=== PATIENT | male | born 1965 | race Caucasian/White ===

== ENCOUNTER 2018-10-08 19:26 | Inpatient (IN) | payer BC, OTHER ==
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
[2018-10-08] MEDS ORDERED: SODIUM CHLORIDE 0.9% 500 ML INFUS.BAG IV ONE (19:55)
[2018-10-08 21:01] LABS: ALBUMIN 4.3 g/dl (3.4-5.0); ALK PHOS 68 U/L (45-117); ANION GAP 8 MMOL/L (8-16); BILIRUBIN,TOTAL 0.5 mg/dl (0.2-1); BLOOD UREA NITROGEN 22 mg/dl (7-18); CALCIUM 8.4 mg/dl (8.5-10); CHLORIDE 102 mmol/L (98-107); CO2 21 mmol/L (21-32); CREATININE 1.2 mg/dl (0.55-1.3); GLUCOSE,RANDOM 97 mg/dl (74-106); POTASSIUM 3.9 mmol/L (3.5-5.1); SGOT/AST 38 U/L (15-37); SGPT/ALT 55 U/L (13-61); SODIUM 131 mmol/L (136-145)
[2018-10-08 21:24] LABS: HEMATOCRIT 41.7 % (35.4-49); HEMOGLOBIN 12.6 GM/dl (11.7-16.9); MCHC 30.3 g/dl (32.0-35.9); MEAN CELL VOLUME 65.7 fl (80-96); MEAN PLT VOLUME 8.7 fl (7.5-11.1); PLATELET COUNT 195 K/MM3 (134-434); RBC 6.34 M/mm3 (4.00-5.60); RDW 18.9 % (11.9-15.9); WHITE BLOOD COUNT 7.2 K/mm3 (4.0-10.8)
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
[2018-10-08 21:27] LABS: MCH 19.9 pg (25.7-33.7)
[2018-10-08 21:28] LABS: ADD RBC MORPHOLOGY YES
[2018-10-08 21:52] LABS: ANISOCYTOSIS 2+; TARGET CELLS 1+
[2018-10-09] MEDS ORDERED: ACETAMINOPHEN 325 MG TABLET (FP) PO PRN (00:55)
[2018-10-09 05:11] VITALS: BMI 32.1
[2018-10-09 08:01] LABS: HEMATOCRIT 41.5 % (35.4-49); HEMOGLOBIN 12.6 GM/dl (11.7-16.9); MCH 20.1 pg (25.7-33.7); MCHC 30.4 g/dl (32.0-35.9); MEAN CELL VOLUME 66.3 fl (80-96); MEAN PLT VOLUME 8.9 fl (7.5-11.1); PLATELET COUNT 176 K/MM3 (134-434); RBC 6.26 M/mm3 (4.00-5.60); RDW 19.2 % (11.9-15.9); WHITE BLOOD COUNT 6.9 K/mm3 (4.0-10.8)
[2018-10-09 08:03] LABS: ANION GAP 7 MMOL/L (8-16); BLOOD UREA NITROGEN 17 mg/dl (7-18); CALCIUM 8.1 mg/dl (8.5-10); CHLORIDE 102 mmol/L (98-107); CO2 24 mmol/L (21-32); CREATININE 1.1 mg/dl (0.55-1.3); GLUCOSE,RANDOM 83 mg/dl (74-106); POTASSIUM 4.2 mmol/L (3.5-5.1); SODIUM 133 mmol/L (136-145)
[2018-10-09] MEDS ORDERED: SODIUM CHLORIDE 1,000 ML IV STA (09:13)
[2018-10-09] MEDS ORDERED: SODIUM CHLORIDE 1,000 ML IV SCH (09:15)
--- NOTE | 2018-10-09 09:49 | PN ---
Physical Exam: SUBJECTIVE: Patient seen and examined at bedside. Two episodes of sweats overnight. Headache is improved. OBJECTIVE: Vital Signs Period Temp Pulse Resp BP Sys/Laguerre Pulse Ox Last 24 Hr 98.4 F-101.6 F 73-104 16-18 118-122/65-84 97-98 GENERAL: The patient is awake, alert, and fully oriented, in no acute distress. HEAD: Normal with no signs of trauma. LUNGS: CTA HEART: Regular rate and rhythm, S1, S2 ABDOMEN: Soft, nontender, nondistended EXTREMITIES: 2+ pulses, warm, well-perfused, no edema. NEUROLOGICAL: Cranial nerves II through XII grossly intact. Normal speech, gait not observed. SKIN: maculopapular rash on chest, back, arms, legs Laboratory Results - last 24 hr 10/08/18 10/08/18 10/08/18 20:00 20:22 20:22 WBC 7.2 RBC 6.34 H Hgb 12.6 Hct 41.7 MCV 65.7 L MCH 19.9 L MCHC 30.3 L RDW 18.9 H Plt Count 195 MPV 8.7 Absolute Neuts (auto) 5.4 Neutrophils % No Result Required. Lymphocytes % No Result Required. Hypochromia 3+ Anisocytosis 2+ Microcytosis 2+ Target Cells 1+ Sodium 131 L Potassium 3.9 Chloride 102 Carbon Dioxide 21 Anion Gap 8 BUN 22 H Creatinine 1.2 Creat Clearance w eGFR 62.86 Random Glucose 97 Calcium 8.4 L Total Bilirubin 0.5 AST 38 H ALT 55 Alkaline Phosphatase 68 Total Protein 7.0 Albumin 4.3 Influenza A (Rapid) Negative Influenza B (Rapid) Negative 10/09/18 10/09/18 07:06 07:06 WBC 6.9 RBC 6.26 H Hgb 12.6 Hct 41.5 MCV 66.3 L MCH 20.1 L MCHC 30.4 L RDW 19.2 H Plt Count 176 MPV 8.9 Absolute Neuts (auto) Neutrophils % Lymphocytes % Hypochromia Anisocytosis Microcytosis Target Cells Sodium 133 L Potassium 4.2 Chloride 102 Carbon Dioxide 24 Anion Gap 7 L BUN 17 Creatinine 1.1 Creat Clearance w eGFR 69.50 Random Glucose 83 Calcium 8.1 L Total Bilirubin AST ALT Alkaline Phosphatase Total Protein Albumin Influenza A (Rapid) Influenza B (Rapid) Active Medications Generic Name Dose Route Start Last Admin Trade Name Freq PRN Reason Stop Dose Admin Acetaminophen 650 mg 10/09/18 00:55 10/09/18 08:29 Tylenol - PO 650 mg Q6H PRN Administration HEADACHE Sodium Chloride 1,000 mls @ 1,000 mls/hr 10/09/18 09:13 Normal Saline - IV 10/09/18 10:12 ASDIR STA Sodium Chloride 1,000 mls @ 100 mls/hr 10/09/18 09:15 Normal Saline - IV ASDIR ELY ASSESSMENT/PLAN 53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 Fever Headache Rash --seen and evaluated by Dr. Paredes --concern for possible measles, state/county have been notified; our infection control is monitoring --bloods, urine, and swabs were collected this morning and picked [facility]; after the pickup, the [employer] and services orders were cancelled in the system because our lab will not be processing --hospitalist and Dr. Paredes will track lab results with the [facility] --transfer to for negative pressure room Labs to be done by County: * urine for measles culture * respiratory virus PCR panel * rubeola IgG, IgM Labs to be done here: * parvovirus IgG, IgM * Group A strep * Monoscreen * Fred Vann profile * RPR * HIV Visit type - Emergency Visit Emergency Visit: Yes ED Registration Date: 10/09/18 Care time: The patient presented to the Emergency Department on the above date and was hospitalized for further evaluation of their emergent condition. - New Patient This patient is new to me today: Yes Date on this admission: 10/09/18 - Critical Care Critical Care patient: No
--- NOTE | 2018-10-09 10:17 | PN ---
Progress Note (short form) - Note Progress Note: ID consult dictated imp/reccd 53 yo man admitted with high grade fever, SANCHEZ and rash developed fever and SANCHEZ 3 days ago, yesterday noted rash not sure where it began does not know vaccination history no cough no conjunctivitis no arthralgia no travel went to [facility] to [employer] and sally went to [facility] 2 weeks ago for college tour lives [place] no HIV risk factors no sore throat no antibiotics no dental work strep screen and influenza screen negative at urgicenter and in our ED cxray normal fever/rash isolate-airborne hiv unlikely but will test rpr unlikley but will test monospot strep screen parvovirus serology ?atypical measles- [facility] exposure? will d/w QIANA send serology d/w hospitalist
[2018-10-09 12:16] LABS: ANISOCYTOSIS 2+; OVALOCYTE 2+; TARGET CELLS 1+; TEAR DROP CELLS FEW
[2018-10-09 12:18] LABS: PLATELET ESTIMATE ADEQUATE
[2018-10-09] MEDS: SODIUM CHLORIDE 1,000 ML IV SCH (13:30)
[2018-10-09] MEDS: ACETAMINOPHEN 325 MG TABLET (FP) PO PRN ×2 (17:53→23:45)
--- NOTE | 2018-10-09 18:03 | CONSULT ---
Consult - text type - Consultation Consultation Note: NEUROLOGY CONSULTATION is greatly appreciated. Events reviewed and discussed with Ronnie Santacruz at [facility] this AM. Pt. examined at [facility] this AM prior to transfer. 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 He notes episodic headaches 1-2/month x many years. These can be present in the morning. Holocranial pressing headaches which are "nothing like his 's migraines" due to the general absence of nausea and photophobia. Pt is now admitted wfter thre days of fevers (up to 103), general malaise, and scattered, punctate rash over his chest, arms and legs, associated with a more severe, holocranial, pressing headache with photophobia "more like a migraine." No neck pain or stiffness. Headache has improved with decrease in temperature and is now "almost gone." AGATHA: Neck supple. Neg Kernigs Scattered punctate rash especially over bot distal legs NEURO: MS/Speech: Normal CN II-XII: Normal Motor: No drift or tremor. Normal strength, tone, bulk and reflexes. Toes downgoing Coord: No FTN Dystaxia Sensory: Normal Gait: Normal IMP: Normal neurological exam Febrile exacerbation of underlying migraines vs. a mild, viral meningitis. SUGGEST: CT of head (C-) Observe for continued resolution of headache Await viral studies Thank you very much, See Smith MD
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
[2018-10-10] MEDS: ACETAMINOPHEN 325 MG TABLET (FP) PO PRN ×3 (05:44→17:34)
[2018-10-10 07:17] LABS: BASO % 0.6 % (0-2.0); EOS % 0.8 % (0-4.5); HEMATOCRIT 37.1 % (35.4-49); HEMOGLOBIN 12.1 GM/dL (11.7-16.9); LYMPH % 19.4 % (8-40); MCH 20.9 pg (25.7-33.7); MCHC 32.8 g/dl (32.0-35.9); MEAN CELL VOLUME 63.8 fl (80-96); MEAN PLT VOLUME 9.3 fl (7.5-11.1); MONO % 14.3 % (3.8-10.2); NEUT % 64.9 % (42.8-82.8); PLATELET COUNT 185 K/MM3 (134-434); RBC 5.81 M/mm3 (4.00-5.60); RDW 20.5 % (11.9-15.9); WHITE BLOOD COUNT 6.8 K/mm3 (4.0-10.0)
[2018-10-10 07:51] LABS: ALBUMIN 3.6 g/dl (3.4-5.0); ALK PHOS 66 U/L (45-117); ANION GAP 7 MMOL/L (8-16); BILIRUBIN,TOTAL 0.4 mg/dL (0.2-1); BLOOD UREA NITROGEN 12 mg/dL (7-18); CALCIUM 7.8 mg/dL (8.5-10.1); CHLORIDE 106 mmol/L (98-107); CO2 26 mmol/L (21-32); CREATININE 1.1 mg/dL (0.55-1.3); GLUCOSE,RANDOM 84 mg/dL (74-106); POTASSIUM 4.4 mmol/L (3.5-5.1); SGOT/AST 33 U/L (15-37); SGPT/ALT 64 U/L (13-61); SODIUM 139 mmol/L (136-145); TOT PROT 6.5 g/dl (6.4-8.2)
[2018-10-10 10:03] LABS: RPR NONREACTIVE (NONREACTIVE)
--- NOTE | 2018-10-10 10:07 | PN ---
Progress Note (short form) - Note Progress Note: fever with headache last night now improved rash is itchy today no hiking no camping dog that is old and stays inside no tick bites history of varicella in his 30s Vital Signs Period Temp Pulse Resp BP Sys/Laguerre Pulse Ox Last 24 Hr 98.5 F-102 F 74-96 16-20 113-142/45-84 95-98 no oral lesions neck supple cor-rrr lungs clear abd soft,nt ext no edema maculopapular rash is unchanged CBC, BMP 10/10/18 06:35 10/10/18 06:35 Microbiology 10/08/18 20:25 Blood - Peripheral Venous Blood Culture - Preliminary NO GROWTH OBTAINED AFTER 24 HOURS, INCUBATION TO CONTINUE FOR 4 DAYS. 10/08/18 20:25 Blood - Peripheral Venous Blood Culture - Preliminary NO GROWTH OBTAINED AFTER 24 HOURS, INCUBATION TO CONTINUE FOR 4 DAYS. rubella IGG positive cxray normal a/p fever/rash isolate-airborne hiv unlikely but will test rpr unlikley but will test monospot, ebv serology strep screen negative parvovirus serology ?atypical measles- [facility] exposure? IGg is positive will still need to isolate until pcr is back d/w patient d/w hospitalist
[2018-10-10] MEDS: SODIUM CHLORIDE 1,000 ML IV SCH ×2 (11:23→13:30)
[2018-10-10 13:08] LABS: MONOSCREEN NEGATIVE (NEGATIVE)
--- NOTE | 2018-10-10 15:16 | PN ---
Physical Exam: SUBJECTIVE: Patient seen and examined. Headache is better. Had fever 101.2 early this morning. His only complaint is itching from the diffuse rash. OBJECTIVE: Vital Signs Period Temp Pulse Resp BP Sys/Laguerre Pulse Ox Last 24 Hr 98 F-102 F 80-96 18-20 113-142/45-84 95-96 GENERAL: The patient is awake, alert, and fully oriented, in no acute distress. LUNGS: Breath sounds equal, clear to auscultation bilaterally, no wheezes, no crackles, no accessory muscle use. HEART: Regular rate and rhythm, S1, S2 without murmur, rub or gallop. ABDOMEN: Obese, soft, nontender, nondistended, normoactive bowel sounds, no guarding, no rebound, no hepatosplenomegaly, no masses. EXTREMITIES: 2+ pulses, warm, well-perfused, no edema. SKIN: Erythematous papular lesions over chest, abdomen, back, arms and legs Laboratory Results - last 24 hr 10/08/18 10/09/18 10/09/18 20:30 15:15 18:02 WBC RBC Hgb Hct MCV MCH MCHC RDW Plt Count MPV Absolute Neuts (auto) Neutrophils % Lymphocytes % Monocytes % Eosinophils % Basophils % Nucleated RBC % ESR Sodium Potassium Chloride Carbon Dioxide Anion Gap BUN Creatinine Creat Clearance w eGFR Random Glucose Calcium Total Bilirubin AST ALT Alkaline Phosphatase C-Reactive Protein Total Protein Albumin RPR Titer Nonreactive Monoscreen Negative Rubeola (Measles) IgG >300.0 Group A Strep Rapid Negative 10/10/18 10/10/18 10/10/18 06:35 06:35 06:35 WBC 6.8 RBC 5.81 H Hgb 12.1 Hct 37.1 MCV 63.8 L MCH 20.9 L MCHC 32.8 RDW 20.5 H Plt Count 185 MPV 9.3 Absolute Neuts (auto) 4.4 Neutrophils % 64.9 Lymphocytes % 19.4 Monocytes % 14.3 H Eosinophils % 0.8 Basophils % 0.6 Nucleated RBC % 0 ESR Sodium 139 Potassium 4.4 Chloride 106 Carbon Dioxide 26 Anion Gap 7 L BUN 12 Creatinine 1.1 Creat Clearance w eGFR 69.50 Random Glucose 84 Calcium 7.8 L Total Bilirubin 0.4 AST 33 ALT 64 H Alkaline Phosphatase 66 C-Reactive Protein 4.3 H Total Protein 6.5 Albumin 3.6 RPR Titer Monoscreen Rubeola (Measles) IgG Group A Strep Rapid 10/10/18 06:35 WBC RBC Hgb Hct MCV MCH MCHC RDW Plt Count MPV Absolute Neuts (auto) Neutrophils % Lymphocytes % Monocytes % Eosinophils % Basophils % Nucleated RBC % ESR 11 Sodium Potassium Chloride Carbon Dioxide Anion Gap BUN Creatinine Creat Clearance w eGFR Random Glucose Calcium Total Bilirubin AST ALT Alkaline Phosphatase C-Reactive Protein Total Protein Albumin RPR Titer Monoscreen Rubeola (Measles) IgG Group A Strep Rapid Active Medications Generic Name Dose Route Start Last Admin Trade Name Freq PRN Reason Stop Dose Admin Acetaminophen 650 mg 10/09/18 13:22 10/10/18 11:20 Tylenol - PO 650 mg Q6H PRN Administration HEADACHE Sodium Chloride 1,000 mls @ 100 mls/hr 10/09/18 13:22 10/10/18 11:23 Normal Saline - IV 100 mls/hr ASDIR ELY Administration ASSESSMENT/PLAN: This is a 53 year old man with no significant medical history who presented to the ED with fever, headache, and rash x 3 days. 1. Fever with rash and headache - Doubt meningitis, measles - Now afebrile - WBC, hgb, platelets all normal - Had mild elevation of AST (38) yesterday, normal today - Mild elevation of ALT (64) today, normal yesterday - C-RP 4.3, ESR 11 - Influenza A/B negative - Rubeola IgG positive, IgM pending - RPR, [place], rapid Strep negative - EBV, HIV, parvovirus serologies pending - Blood cultures negative after 24 hours - Throat culture pending - Continue airborne isolation until Rubeola PCR results available Visit type - Emergency Visit Emergency Visit: Yes ED Registration Date: 10/09/18 Care time: The patient presented to the Emergency Department on the above date and was hospitalized for further evaluation of their emergent condition. - New Patient This patient is new to me today: Yes Date on this admission: 10/10/18 - Critical Care Critical Care patient: No - Discharge Referral Referred to [facility] Med P.C.: No
[2018-10-10] MEDS ORDERED: ACETAMINOPHEN 325 MG TABLET (FP) PO ONE (20:16)
[2018-10-11] MEDS ORDERED: IBUPROFEN 600 MG TABLET (FP) PO ONE (00:45)
[2018-10-11 06:58] LABS: BASO % 0.8 % (0-2.0); EOS % 0.6 % (0-4.5); HEMATOCRIT 35.6 % (35.4-49); HEMOGLOBIN 11.8 GM/dL (11.7-16.9); MCHC 33.3 g/dl (32.0-35.9); MEAN CELL VOLUME 63.2 fl (80-96); MEAN PLT VOLUME 9.4 fl (7.5-11.1); MONO % 11.7 % (3.8-10.2); NEUT % 61.9 % (42.8-82.8); PLATELET COUNT 180 K/MM3 (134-434); RBC 5.63 M/mm3 (4.00-5.60); RDW 19.9 % (11.9-15.9); WHITE BLOOD COUNT 5.2 K/mm3 (4.0-10.0)
[2018-10-11 07:16] LABS: ALBUMIN 3.3 g/dl (3.4-5.0); ALK PHOS 56 U/L (45-117); ANION GAP 7 MMOL/L (8-16); BILIRUBIN,DIRECT 0.1 mg/dL (0.0-0.2); BILIRUBIN,TOTAL 0.4 mg/dL (0.2-1); BLOOD UREA NITROGEN 11 mg/dL (7-18); CALCIUM 7.8 mg/dL (8.5-10.1); CHLORIDE 105 mmol/L (98-107); CO2 25 mmol/L (21-32); GLUCOSE,RANDOM 88 mg/dL (74-106); POTASSIUM 4.3 mmol/L (3.5-5.1); SGOT/AST 23 U/L (15-37); SGPT/ALT 53 U/L (13-61); SODIUM 137 mmol/L (136-145)
[2018-10-11] MEDS: IBUPROFEN 400 MG TABLET (FP) PO PRN (08:54)
[2018-10-11] MEDS: SODIUM CHLORIDE 1,000 ML IV SCH (12:00)
--- NOTE | 2018-10-11 12:42 | PN ---
Progress Note (short form) - Note Progress Note: fever with headache again alert today he has swelling of his right knee dog that is old and stays inside no tick bites no hunting no rodents history of varicella in his 30s one episode of diarrhea yesterday Vital Signs Period Temp Pulse Resp BP Sys/Laguerre Pulse Ox Last 24 Hr 98.8 F-102.3 F 71-88 18-20 112-142/68-87 96-99 rash has increased multiple flat muculopapular lesions on legs and arms increased rash on abdomen and back no vesicular lesions no bullous lesions no eschars he has an old healed cut on his leg cor-rrr lungs clear abd soft,nt ext no edema CBC, BMP 10/11/18 05:30 10/11/18 05:30 Laboratory Tests 10/09/18 10/09/18 10/09/18 15:15 15:15 18:02 ESR AST ALT Alkaline Phosphatase C-Reactive Protein RPR Titer Nonreactive Monoscreen Negative HIV Genotype Non reactive Group A Strep Rapid Negative 10/10/18 10/10/18 10/11/18 06:35 06:35 05:30 ESR 11 AST 23 ALT 53 Alkaline Phosphatase 56 C-Reactive Protein 4.3 H RPR Titer Monoscreen HIV Genotype Group A Strep Rapid rubella IGG positive, IGM negative (verbal from [facility]) cxray normal Microbiology 10/09/18 19:58 Throat Throat Culture - Final NO BETA HEMOLYTIC STREPTOCOCCI ISOLATED 10/08/18 20:25 Blood - Peripheral Venous Blood Culture - Preliminary NO GROWTH OBTAINED AFTER 48 HOURS, INCUBATION TO CONTINUE FOR 3 DAYS. 10/08/18 20:25 Blood - Peripheral Venous Blood Culture - Preliminary NO GROWTH OBTAINED AFTER 48 HOURS, INCUBATION TO CONTINUE FOR 3 DAYS. a/p fever/rash isolate-airborne ?tick illness- unlikely but will cover with doxycycline send lyme, ehrlichia, RMSF serology repeat blood cultures add mycoplasma serology start doxycycline d/w dermatology Dr Jiang she will be in to see the patient later today neurology re-evaluation for possible LP d/w by phone d/w hospitalist
[2018-10-11] MEDS: DOXYCYCLINE INJECTION 100 MG in DEXTROSE 5%-WATER - 100 ML IVPB SCH ×2 (13:53→21:48)
[2018-10-11] MEDS: IBUPROFEN 600 MG TABLET (FP) PO PRN ×2 (14:04→19:00)
--- NOTE | 2018-10-11 16:28 | PN ---
Physical Exam: SUBJECTIVE: Patient seen and examined. He complains of itching, right knee pain , and intermittent headaches when he has fevers. OBJECTIVE: Vital Signs Period Temp Pulse Resp BP Sys/Laguerre Pulse Ox Last 24 Hr 98.8 F-102.3 F 71-88 18-20 112-142/68-87 99-99 GENERAL: The patient is awake, alert, and fully oriented, in no acute distress. LUNGS: Breath sounds equal, clear to auscultation bilaterally, no wheezes, no crackles, no accessory muscle use. HEART: Regular rate and rhythm, S1, S2 without murmur, rub or gallop. ABDOMEN: Obese, soft, nontender, nondistended, normoactive bowel sounds, no guarding, no rebound, no hepatosplenomegaly, no masses. EXTREMITIES: 2+ pulses, warm, well-perfused, no edema. SKIN: Increased erythematous papular lesions over chest, abdomen, back, arms and legs. No lesions on face, scalp, palms, soles, or in mouth. Laboratory Results - last 24 hr 10/09/18 10/11/18 10/11/18 15:15 05:30 05:30 WBC 5.2 RBC 5.63 H Hgb 11.8 Hct 35.6 MCV 63.2 L MCH 21.0 L MCHC 33.3 RDW 19.9 H Plt Count 180 MPV 9.4 Absolute Neuts (auto) 3.2 Neutrophils % 61.9 Lymphocytes % 25.0 D Monocytes % 11.7 H Eosinophils % 0.6 Basophils % 0.8 Nucleated RBC % 0 Sodium 137 Potassium 4.3 Chloride 105 Carbon Dioxide 25 Anion Gap 7 L BUN 11 Creatinine 1.0 Creat Clearance w eGFR 77.58 Random Glucose 88 Calcium 7.8 L Total Bilirubin 0.4 Direct Bilirubin 0.1 AST 23 ALT 53 Alkaline Phosphatase 56 Total Protein 6.0 L Albumin 3.3 L HIV Genotype Non reactive Active Medications Generic Name Dose Route Start Last Admin Trade Name Freq PRN Reason Stop Dose Admin Acetaminophen 650 mg 10/09/18 13:22 10/10/18 17:34 Tylenol - PO 650 mg Q6H PRN Administration HEADACHE Sodium Chloride 1,000 mls @ 100 mls/hr 10/09/18 13:22 10/11/18 12:00 Normal Saline - IV 100 mls/hr ASDIR ELY Administration Doxycycline Hyclate 100 mg/ 100 mls @ 100 mls/hr 10/11/18 12:45 10/11/18 13: 53 Dextrose IVPB 100 mls/hr BID ELY Administration Ibuprofen 400 mg 10/11/18 08:42 10/11/18 08:54 Motrin - PO 400 mg Q6H PRN Administration PAIN LEVEL 1-5 Ibuprofen 600 mg 10/11/18 08:44 10/11/18 14:04 Motrin - PO 600 mg Q6H PRN Administration PAIN LEVEL 6-10 Triamcinolone Acetonide 1 applic 10/11/18 22:00 Aristocort 0.1% Cream - TP BID [facility] ASSESSMENT/PLAN: This is a 53 year old man with no significant medical history who presented to the ED with fever, headache, and rash x 3 days. 1. Fever with rash and headache - Doubt meningitis, measles - Had fever 102.3 overnight - WBC, hgb, platelets remain normal - Transaminases normal - C-RP 4.3, ESR 11 - Influenza A/B negative - Rubeola IgG positive, IgM pending - RPR, [place], HIV, rapid Strep negative - EBV, parvovirus, Lyme, Ehrlichia, [place] spotted fever, Mycoplasma serologies pending - Blood cultures negative after 48 hours - Blood cultures repeated today - Blood parasite smear pending - Throat culture negative - Doxycycline started empirically - Dermatology input appreciated - Skin biopsy done today - Repeat ESR, C-RP - Check LOLA, RF, LDH - Start triamcinolone 0.1% cream bid - Consider Prednisone 60 mg PO daily - Continue airborne isolation until Rubeola PCR results available Visit type - Emergency Visit Emergency Visit: Yes ED Registration Date: 10/09/18 Care time: The patient presented to the Emergency Department on the above date and was hospitalized for further evaluation of their emergent condition. - New Patient This patient is new to me today: No - Critical Care Critical Care patient: No - Discharge Referral Referred to [facility] Med P.C.: No
[2018-10-11] MEDS: TRIAMCINOLONE ACET 0.1% CREAM 15 GM TUBE TP SCH (21:48)
[2018-10-12 06:38] LABS: EOS % 0.5 % (0-4.5); HEMATOCRIT 33.3 % (35.4-49); HEMOGLOBIN 11.3 GM/dL (11.7-16.9); LYMPH % 24.2 % (8-40); MCH 21.1 pg (25.7-33.7); MCHC 33.8 g/dl (32.0-35.9); MEAN CELL VOLUME 62.5 fl (80-96); MEAN PLT VOLUME 8.8 fl (7.5-11.1); MONO % 8.5 % (3.8-10.2); NEUT % 65.8 % (42.8-82.8); PLATELET COUNT 180 K/MM3 (134-434); RBC 5.34 M/mm3 (4.00-5.60); RDW 20.2 % (11.9-15.9); WHITE BLOOD COUNT 4.1 K/mm3 (4.0-10.0)
[2018-10-12 07:03] LABS: ALBUMIN 3.1 g/dl (3.4-5.0); ALK PHOS 55 U/L (45-117); ANION GAP 5 MMOL/L (8-16); BILIRUBIN,DIRECT 0.1 mg/dL (0.0-0.2); BILIRUBIN,TOTAL 0.6 mg/dL (0.2-1); BLOOD UREA NITROGEN 13 mg/dL (7-18); CALCIUM 7.9 mg/dL (8.5-10.1); CHLORIDE 106 mmol/L (98-107); CO2 25 mmol/L (21-32); CREATININE 0.9 mg/dL (0.55-1.3); GLUCOSE,RANDOM 90 mg/dL (74-106); SGOT/AST 29 U/L (15-37); SGPT/ALT 53 U/L (13-61); SODIUM 136 mmol/L (136-145); TOT PROT 5.9 g/dl (6.4-8.2)
--- NOTE | 2018-10-12 09:26 | PN ---
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 no significant PMH, all labs are at base line so far infectious w/u is -ve evaluated by Derm, Neurology and ID - Current Medication List Current Medications: Active Medications Acetaminophen (Tylenol -) 650 mg PO Q6H PRN PRN Reason: HEADACHE Last Admin: 10/10/18 17:34 Dose: 650 mg Sodium Chloride (Normal Saline -) 1,000 mls @ 100 mls/hr IV ASDIR ELY Last Admin: 10/11/18 12:00 Dose: 100 mls/hr Doxycycline Hyclate 100 mg/ (Dextrose) 100 mls @ 100 mls/hr IVPB BID [facility] Last Admin: 10/11/18 21:48 Dose: 100 mls/hr Ibuprofen (Motrin -) 400 mg PO Q6H PRN PRN Reason: PAIN LEVEL 1-5 Last Admin: 10/11/18 08:54 Dose: 400 mg Ibuprofen (Motrin -) 600 mg PO Q6H PRN PRN Reason: PAIN LEVEL 6-10 Last Admin: 10/11/18 19:00 Dose: 600 mg Triamcinolone Acetonide (Aristocort 0.1% Cream -) 1 applic TP BID [facility] Last Admin: 10/11/18 21:48 Dose: 1 applic - Objective Vital Signs: Vital Signs Temperature 98.8 F 10/12/18 06:00 Pulse Rate 80 10/12/18 06:00 Respiratory Rate 20 10/12/18 06:00 Blood Pressure 130/62 10/12/18 06:00 O2 Sat by Pulse Oximetry (%) 96 10/12/18 05:00 GENERAL: Middle aaged man not in acute distress, awake, alert, and fully oriented. HEENT: Mm moist, no rash, Conjuctiva clear no inection or redness NECK: Supple, no stiffness, No JVd No Bruit. LUNGS: Breath sounds equal, clear to auscultation bilaterally, no wheezes, no crackles, no accessory muscle use. CVS : S1 S2 without murmur, rub or gallop. ABDOMEN: Soft, nontender, nondistended, normoactive bowel sounds, no guarding, no rebound, no hepatosplenomegaly, no masses. EXTREMITIES: 2+ pulses, warm, well-perfused, no edema. H[employer]PITAL[employer] WORKERS: AOx3 non focal SKIN: erythematous papular lesions over chest, abdomen, back, arms and legs sparing face, scalp, palms, soles, or in mouth. Labs: CBC, BMP 10/12/18 05:30 10/12/18 05:30 Serology : so far measles IgG + Problem List - Problems (1) Fever Assessment/Plan: Admitted with fever still spiking T max 103 F yesterday , so far w/u -ve viral and rickettsial serology is pending, evaluted by Neurology, ID and Derm on empiric doxycycline. Code(s): R50.9 - FEVER, UNSPECIFIED (2) Rash Assessment/Plan: fever with rash initially suspected Measles but IgG + IgM is pending will F/U Pending serology, Dd Benadryl PRN q 8 25 mg and PO Ranitidine 150 mg BID for itching Code(s): R21 - RASH AND OTHER NONSPECIFIC SKIN ERUPTION (3) Knee swelling Assessment/Plan: Rt Knee pain and swelling on Brufen add on Uric acid F/U X ray Rhematology consult, Code(s): M25.469 - EFFUSION, UNSPECIFIED KNEE Assessment/Plan patient feels intermittent fever with haed ache also c/o Rt Knee pian yesterday evaluated by Derm , recommonded unlikely infectious etiology , ID recommended PO prednisone trial and Rhematology F/U . Also re evaluted by Neuro recommended MRI Brain. discussed with the team
[2018-10-12] MEDS: DOXYCYCLINE INJECTION 100 MG in DEXTROSE 5%-WATER - 100 ML IVPB SCH ×2 (09:56→21:59)
[2018-10-12] MEDS: TRIAMCINOLONE ACET 0.1% CREAM 15 GM TUBE TP SCH ×2 (09:56→21:58)
[2018-10-12] MEDS: RANITIDINE HCL 150 MG TABLET (FP) PO SCH ×2 (11:31→21:58)
[2018-10-12] MEDS: IBUPROFEN 600 MG TABLET (FP) PO PRN ×2 (11:31→20:16)
[2018-10-12 11:34] LABS: ANISOCYTOSIS 0; MACROCYTOSIS 0; PLATELET ESTIMATE NORMAL; TEAR DROP CELLS 1+
[2018-10-12 11:52] LABS: URIC ACID 2.3 mg/dL (2.6-7.2)
--- NOTE | 2018-10-12 12:21 | PN ---
Progress Note, Physician Chief Complaint: AWAKE, ALERT REMAINS FEBRILE C/O HEADACHE WITH FEVER, R KNEE PAIN / SWELLING NO PHOTOPHOBIA/ NECK STIFFNESS - Current Medication List Current Medications: Active Medications Acetaminophen (Tylenol -) 650 mg PO Q6H PRN PRN Reason: HEADACHE Last Admin: 10/10/18 17:34 Dose: 650 mg Diphenhydramine HCl (Benadryl -) 25 mg PO Q8H PRN PRN Reason: FOR ITCHING Sodium Chloride (Normal Saline -) 1,000 mls @ 100 mls/hr IV ASDIR [facility] Last Admin: 10/11/18 12:00 Dose: 100 mls/hr Doxycycline Hyclate 100 mg/ (Dextrose) 100 mls @ 100 mls/hr IVPB BID [facility] Last Admin: 10/12/18 09:56 Dose: 100 mls/hr Ibuprofen (Motrin -) 400 mg PO Q6H PRN PRN Reason: PAIN LEVEL 1-5 Last Admin: 10/11/18 08:54 Dose: 400 mg Ibuprofen (Motrin -) 600 mg PO Q6H PRN PRN Reason: PAIN LEVEL 6-10 Last Admin: 10/12/18 11:31 Dose: 600 mg Prednisone (Deltasone -) 60 mg PO DAILY [facility] Ranitidine HCl (Zantac -) 150 mg PO BID [facility] Last Admin: 10/12/18 11:31 Dose: 150 mg Triamcinolone Acetonide (Aristocort 0.1% Cream -) 1 applic TP BID [facility] Last Admin: 10/12/18 09:56 Dose: 1 applic - Objective Vital Signs: Vital Signs Temperature 98.3 F 10/12/18 10:00 Pulse Rate 80 10/12/18 10:00 Respiratory Rate 18 10/12/18 10:00 Blood Pressure 118/70 10/12/18 10:00 O2 Sat by Pulse Oximetry (%) 96 10/12/18 05:00 Constitutional: Yes: No Distress Cardiovascular: Yes: Regular Rate and Rhythm, S1, S2 Respiratory: Yes: CTA Bilaterally Gastrointestinal: Yes: Normal Bowel Sounds, Soft Extremities: Yes: Other (R KNEE SLIGHTLY SWOLLEN, WARM. DECREASED ROM. NO ERYTHEMA) Integumentary: Yes: Other (+ DIFFUSE URTICARIAL RASH, TRUNK, EXT) Labs: CBC, BMP 10/12/18 05:30 10/12/18 05:30 Assessment/Plan FEVER/ RASH ? VIRAL SYNDROME ? VASCULITIS R KNEE SWELLING AWAIT SEROLOGIES, SKIN BX RHEUM EVALUATION START PREDNISONE
[2018-10-12] MEDS: predniSONE 20 MG TABLET (UD) PO SCH (13:14)
[2018-10-12 13:16] LABS: EPSTEIN BARR ANTIBODY IgM <36.0 U/mL (0.0-35.9)
--- NOTE | 2018-10-12 14:22 | PN ---
Progress Note (short form) - Note Progress Note: NEUROLOGY PROGRESS: Events reviewed and discussed with staff. Consults read and appreciated. Still C/O holocranial headaches in evening hours and nighttime "when I have a fever." Still with nocturnal F up to 103, which break with Motrin along with the headache. Empirically treated with doxycycline for possible tick-borne illness and prednisone for rash. Immunologic panel unremarkable for syphilis, HIV, influenza, Group A strep, [place]. Pending further panel and rheumatologic workup. ESR 10 CRP 5.0 MCV 66 WBC 5.0 uric acid 2.7 AGATHA: Cor reg. Neck supple. Wide-spread maculopapules noted up both legs. R knee appears swollen and s/p recent biopsy. NEURO Mentation: OX. [facility]. October 12, 2018. TRUMP EOM intact and full ellison appreciated. No drift. Strength normal. Reflexes normal. Toes downgoing. No FTN dystaxia Feels pinch in all fours Impression: 1. Essentially normal neurological exam 2. Migraine headache +/- viral syndrome 3. 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 Would consider LP after neuroimaging. Thank you very much, See Nazario MD
[2018-10-12] MEDS: SODIUM CHLORIDE 1,000 ML IV SCH (18:00)
--- NOTE | 2018-10-12 21:56 | PN ---
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 regarding brain MRI for pt mentioned MRI brain with no acute pathology - Current Medication List Current Medications: Active Medications Acetaminophen (Tylenol -) 650 mg PO Q6H PRN PRN Reason: HEADACHE Last Admin: 10/10/18 17:34 Dose: 650 mg Diphenhydramine HCl (Benadryl -) 25 mg PO Q8H PRN PRN Reason: FOR ITCHING Sodium Chloride (Normal Saline -) 1,000 mls @ 100 mls/hr IV ASDIR [facility] Last Admin: 10/12/18 18:00 Dose: 100 mls/hr Doxycycline Hyclate 100 mg/ (Dextrose) 100 mls @ 100 mls/hr IVPB BID [facility] Last Admin: 10/12/18 09:56 Dose: 100 mls/hr Ibuprofen (Motrin -) 400 mg PO Q6H PRN PRN Reason: PAIN LEVEL 1-5 Last Admin: 10/11/18 08:54 Dose: 400 mg Ibuprofen (Motrin -) 600 mg PO Q6H PRN PRN Reason: PAIN LEVEL 6-10 Last Admin: 10/12/18 20:16 Dose: 600 mg Prednisone (Deltasone -) 60 mg PO DAILY [facility] Last Admin: 10/12/18 13:14 Dose: 60 mg Ranitidine HCl (Zantac -) 150 mg PO BID [facility] Last Admin: 10/12/18 11:31 Dose: 150 mg Triamcinolone Acetonide (Aristocort 0.1% Cream -) 1 applic TP BID [facility] Last Admin: 10/12/18 09:56 Dose: 1 applic - Objective Vital Signs: Vital Signs Temperature 99.4 F 10/12/18 14:00 Pulse Rate 80 10/12/18 14:00 Respiratory Rate 18 10/12/18 10:00 Blood Pressure 123/58 L 10/12/18 14:00 O2 Sat by Pulse Oximetry (%) 97 10/12/18 09:00 Labs: CBC, BMP 10/12/18 05:30 10/12/18 05:30
[2018-10-12] MEDS: diphenhydrAMINE HCL 25 MG CAPSULE (FP) PO PRN (22:10)
[2018-10-13] MEDS: IBUPROFEN 400 MG TABLET (FP) PO PRN (04:41)
[2018-10-13 06:32] LABS: BASO % 1.3 % (0-2.0); EOS % 0.1 % (0-4.5); HEMATOCRIT 33.2 % (35.4-49); LYMPH % 28.3 % (8-40); MCH 20.7 pg (25.7-33.7); MCHC 33.1 g/dl (32.0-35.9); MEAN CELL VOLUME 62.5 fl (80-96); MEAN PLT VOLUME 9.1 fl (7.5-11.1); MONO % 13.6 % (3.8-10.2); NEUT % 56.7 % (42.8-82.8); PLATELET COUNT 195 K/MM3 (134-434); RBC 5.32 M/mm3 (4.00-5.60); RDW 20.2 % (11.9-15.9); WHITE BLOOD COUNT 3.6 K/mm3 (4.0-10.0)
[2018-10-13 07:15] LABS: ALBUMIN 3.1 g/dl (3.4-5.0); ALK PHOS 53 U/L (45-117); ANION GAP 6 MMOL/L (8-16); BILIRUBIN,TOTAL 0.3 mg/dL (0.2-1); BLOOD UREA NITROGEN 13 mg/dL (7-18); CHLORIDE 108 mmol/L (98-107); CO2 25 mmol/L (21-32); CREATININE 0.8 mg/dL (0.55-1.3); GLUCOSE,RANDOM 91 mg/dL (74-106); POTASSIUM 4.3 mmol/L (3.5-5.1); SGOT/AST 26 U/L (15-37); SGPT/ALT 52 U/L (13-61); SODIUM 139 mmol/L (136-145); TOT PROT 5.9 g/dl (6.4-8.2)
--- NOTE | 2018-10-13 09:25 | PN ---
Physical Exam: SUBJECTIVE: Patient seen and examined at the bedside. at the bedside. patient reports feeling better, but still has a pink raised rash on bilateral legs, abdomen and back. no shortness of breath or wheezing. OBJECTIVE: Vital Signs Period Temp Pulse Resp BP Sys/Laguerre Pulse Ox Last 24 Hr 98.3 F-100.2 F 69-96 18-20 118-132/58-86 98 GENERAL: The patient is awake, alert, and fully oriented, in no acute distress. HEAD: Normal with no signs of trauma. EYES: PERRL, extraocular movements intact, sclera anicteric, conjunctiva clear. No ptosis. ENT: Ears normal, nares patent, oropharynx clear without exudates, moist mucous membranes. NECK: Trachea midline, full range of motion, supple. LUNGS: Breath sounds equal, clear to auscultation bilaterally, no wheezes HEART: Regular rate and rhythm ABDOMEN: Soft, nontender, nondistended, normoactive bowel sounds, no guarding, no rebound, no hepatosplenomegaly, no masses. SKIN: raised diffused pink rash on bilateral legs, arms (mild), abdomen and back Laboratory Results - last 24 hr 10/08/18 10/09/18 10/11/18 20:22 15:15 13:45 WBC RBC Hgb Hct MCV MCH MCHC RDW Plt Count MPV Absolute Neuts (auto) Neutrophils % Lymphocytes % Monocytes % Eosinophils % Basophils % Nucleated RBC % Hypochromia Platelet Estimate Polychromasia Poikilocytosis Anisocytosis Microcytosis Macrocytosis Tear Drop Cells Acanthocytes (Spur) Schistocytes Sodium Potassium Chloride Carbon Dioxide Anion Gap BUN Creatinine Creat Clearance w eGFR Random Glucose Uric Acid Calcium Total Bilirubin Direct Bilirubin AST ALT Alkaline Phosphatase Total Protein Albumin Rheumatoid Arth Biomark EBV IgG Ab 544.0 H EBV IgM Ab <36.0 EBV Nuclear Antigen >600.0 H Rubeola (Measles) IgM <0.80 Anti-Streptolysin Scrn 62.5 10/11/18 10/12/18 10/12/18 17:15 05:30 05:30 WBC RBC Hgb Hct MCV MCH MCHC RDW Plt Count MPV Absolute Neuts (auto) Neutrophils % Lymphocytes % Monocytes % Eosinophils % Basophils % Nucleated RBC % Hypochromia 2+ Platelet Estimate Normal Polychromasia 1+ Poikilocytosis 2+ Anisocytosis 0 Microcytosis 2+ Macrocytosis 0 Tear Drop Cells 1+ Acanthocytes (Spur) 1+ Schistocytes 1+ Sodium 136 Potassium 4.0 Chloride 106 Carbon Dioxide 25 Anion Gap 5 L BUN 13 Creatinine 0.9 Creat Clearance w eGFR 87.61 Random Glucose 90 Uric Acid 2.3 L Calcium 7.9 L Total Bilirubin 0.6 Direct Bilirubin 0.1 AST 29 ALT 53 Alkaline Phosphatase 55 Total Protein 5.9 L Albumin 3.1 L Rheumatoid Arth Biomark < 10.0 EBV IgG Ab EBV IgM Ab EBV Nuclear Antigen Rubeola (Measles) IgM Anti-Streptolysin Scrn 10/13/18 10/13/18 05:30 05:30 WBC 3.6 L RBC 5.32 Hgb 11.0 L Hct 33.2 L MCV 62.5 L MCH 20.7 L MCHC 33.1 RDW 20.2 H Plt Count 195 MPV 9.1 Absolute Neuts (auto) 2.0 Neutrophils % 56.7 Lymphocytes % 28.3 Monocytes % 13.6 H Eosinophils % 0.1 Basophils % 1.3 Nucleated RBC % 0 Hypochromia Platelet Estimate Polychromasia Poikilocytosis Anisocytosis Microcytosis Macrocytosis Tear Drop Cells Acanthocytes (Spur) Schistocytes Sodium 139 Potassium 4.3 Chloride 108 H Carbon Dioxide 25 Anion Gap 6 L BUN 13 Creatinine 0.8 Creat Clearance w eGFR 100.36 Random Glucose 91 Uric Acid Calcium 8.0 L Total Bilirubin 0.3 Direct Bilirubin AST 26 ALT 52 Alkaline Phosphatase 53 Total Protein 5.9 L Albumin 3.1 L Rheumatoid Arth Biomark EBV IgG Ab EBV IgM Ab EBV Nuclear Antigen Rubeola (Measles) IgM Anti-Streptolysin Scrn Active Medications Generic Name Dose Route Start Last Admin Trade Name Freq PRN Reason Stop Dose Admin Acetaminophen 650 mg 10/09/18 13:22 10/10/18 17:34 Tylenol - PO 650 mg Q6H PRN Administration HEADACHE Diphenhydramine HCl 25 mg 10/12/18 10:55 10/12/18 22:10 Benadryl - PO 25 mg Q8H PRN Administration FOR ITCHING Sodium Chloride 1,000 mls @ 100 mls/hr 10/09/18 13:22 10/12/18 18:00 Normal Saline - IV 100 mls/hr ASDIR ELY Administration Doxycycline Hyclate 100 mg/ 100 mls @ 100 mls/hr 10/11/18 12:45 10/12/18 21: 59 Dextrose IVPB 100 mls/hr BID ELY Administration Ibuprofen 400 mg 10/11/18 08:42 10/13/18 04:41 Motrin - PO 400 mg Q6H PRN Administration PAIN LEVEL 1-5 Ibuprofen 600 mg 10/11/18 08:44 10/12/18 20:16 Motrin - PO 600 mg Q6H PRN Administration PAIN LEVEL 6-10 Prednisone 60 mg 10/12/18 12:30 10/12/18 13:14 Deltasone - PO 60 mg DAILY ELY Administration Ranitidine HCl 150 mg 10/12/18 11:00 10/12/18 21:58 Zantac - PO 150 mg BID ELY Administration Triamcinolone Acetonide 1 applic 10/11/18 22:00 10/12/18 21:58 Aristocort 0.1% Cream - TP 1 applic BID ELY Administration ASSESSMENT/PLAN: Patient is a 53 year old male with no significant past medical history, presents to the ED on 10/12/18 with high fevers of 103F, chills, generalized raised red rash to chest, trunk and arms accompanied with headaches that has been going on for approximately 2 days prior to admission. Patient denied chest pain, shortness of breath, dizziness, palpitations ,neck pain, abdominal pain, nausea or vomiting. He is being worked up for infectious workup and is being evaluated by dermatology and rheumotology. He reports feeling better today, mild headaches, but improved since starting prednisone daily. His right knee is still swollen. His was treated for the flu with tamiflu but he was not treated prophylactic with tamiflu. labs: agustin screen: pending rpr titer: negative Imaging MRI brain 10/12/18: MRI brain with no acute pathology knee ray: no fracture, suprapatellar joint effusion chest xray: negative ID: Fever of unknown origin concurrently with a diffused raised rash and headaches WBC within normal limits, no tachycardia or signs of sepsis Influenza negative MRI of brain negative for acute findings Rubeola IgG positive, IgM pending workup of influenza negative blood and urine cultures remains negative blood parasite smear with no parasites found on doxycline 100mg bid Predinisone 60mg daily Awaiting dermatology recommendations Seen by rheumatology Remains on isolation precautions for measles rule out fen stop ivf, encourage po hydration monitor labs daily low salt diet prophy ambulation SCDs full code Visit type - Emergency Visit Emergency Visit: Yes ED Registration Date: 10/12/18 Care time: The patient presented to the Emergency Department on the above date and was hospitalized for further evaluation of their emergent condition. - New Patient This patient is new to me today: Yes Date on this admission: 10/13/18 - Critical Care Critical Care patient: No - Discharge Referral Referred to [facility] Med P.C.: No
[2018-10-13] MEDS: TRIAMCINOLONE ACET 0.1% CREAM 15 GM TUBE TP SCH ×2 (10:00→21:27)
[2018-10-13] MEDS: predniSONE 20 MG TABLET (UD) PO SCH (10:38)
[2018-10-13] MEDS: DOXYCYCLINE INJECTION 100 MG in DEXTROSE 5%-WATER - 100 ML IVPB SCH ×2 (10:38→21:26)
[2018-10-13] MEDS: RANITIDINE HCL 150 MG TABLET (FP) PO SCH ×2 (10:38→21:27)
[2018-10-13] MEDS: SODIUM CHLORIDE 1,000 ML IV SCH (13:00)
[2018-10-13] MEDS: IBUPROFEN 600 MG TABLET (FP) PO PRN (14:00)
[2018-10-13] MEDS ORDERED: PT OWN MED DRAWER 7, Y5N ONE (14:58)
[2018-10-13 17:13] LABS: PARV B19 IGG 6.7 index (0.0-0.8); PARV B19 IGM 0.2 index (0.0-0.8)
--- NOTE | 2018-10-13 18:35 | CONSULT ---
Consult Consult Specialty:: Rheumatology - History of Present Illness History of Present Illness: 53 year old male with no past medical history admitted with fever, skin rash and headaches and recently developed pain in the right knee. HPI On 10/07/18 the patient woke up with fever and chills, then he developed frontal headache. The next day he developed a macular rash involving trunk and extremities. Face, palms and soles were speared. He was admitted to the hospital the next day, Since admission he has had fever daily, T max yesterday was 103. Two days ago he developed pain and swelling in the right knee, the pain was severe, he had difficulty in walking and today the pain is not as severe. He had diarrhea for 1 day while in the hospital with no hematochezia. He denies oral ulcers, shortness of breath, chest pain, abdominal pain or arthralgia in hands. The patient was started today on Prednisone 60 mg/d resulting in improvement of knee pain and skin rash. CXR was normal. X ray of the right knee (not weight bearing ) was normal. MRI of the brain with contrast reported with increased signal intensity seen in cortex that may be related to gliosis and otherwise it was normal. ESR was 10, SMA-7 and LFT were normal and rheumatoid factor was negative. The patient had a skin biopsy, results pending. - Alcohol/Substance Use Hx Alcohol Use: Yes - Smoking History Smoking history: Never smoked Aproximately how many cigarettes per day: 0 Home Medications - Allergies Allergies/Adverse Reactions: Allergies Allergy/AdvReac Type Severity Reaction Status Date / Time No Known Allergies Allergy Verified 01/24/15 12:10 - Home Medications Home Medications: Ambulatory Orders NK [No Known Home Medication] 10/08/18 Review of Systems - Review of Systems Constitutional: reports: Fever Eyes: reports: No Symptoms HENT: reports: Other (Headaches) Neck: reports: No Symptoms Cardiovascular: reports: No Symptoms Respiratory: reports: No Symptoms Musculoskeletal: reports: Other (See HPI) Integumentary: reports: Other (See HPI) Neurological: reports: Headache Physical Exam Vital Signs: Vital Signs Temperature 98.5 F 10/13/18 14:10 Pulse Rate 93 H 10/13/18 14:10 Respiratory Rate 20 10/13/18 14:10 Blood Pressure 143/65 10/13/18 14:10 O2 Sat by Pulse Oximetry (%) 97 10/13/18 09:00 Constitutional: Yes: Mild Distress Eyes: Yes: WNL HENT: Yes: WNL Neck: Yes: WNL Cardiovascular: Yes: WNL Respiratory: Yes: WNL Gastrointestinal: Yes: WNL Musculoskeletal: Yes: Other (Mild tenderness and swelling of the right knee.) Neurological: Yes: WNL Labs: CBC, BMP 10/13/18 05:30 10/13/18 05:30 Laboratory Tests 10/11/18 10/11/18 10/12/18 17:15 17:15 05:30 ESR 10 Random Glucose Uric Acid 2.3 L Calcium Total Bilirubin AST ALT Alkaline Phosphatase Total Protein Albumin Rheumatoid Arth Biomark < 10.0 10/13/18 05:30 ESR Random Glucose 91 Uric Acid Calcium 8.0 L Total Bilirubin 0.3 AST 26 ALT 52 Alkaline Phosphatase 53 Total Protein 5.9 L Albumin 3.1 L Rheumatoid Arth Biomark Problem List - Problems (1) Viral syndrome Assessment/Plan: Fever, skin rash, headache and arthritis in the right knee. Probable viral syndrome. It is unlikely to be related to connective tissue disease. Plan: I will request further serology and try to obtain tomorrow preliminary report of skin biopsy. Continue same medications Code(s): B34.9 - VIRAL INFECTION, UNSPECIFIED
[2018-10-13 19:42] LABS: URINE APPEARANCE CLEAR; URINE BILIRUBIN NEGATIVE (<2.0 mg/dL); URINE COLOR LTYELLOW; URINE GLUCOSE (UA) 2+ (NEGATIVE); URINE KETONE NEGATIVE (NEGATIVE); URINE LEUK ESTERASE NEGATIVE (NEGATIVE); URINE NITRITE NEGATIVE (NEGATIVE); URINE PROTEIN NEGATIVE (NEGATIVE); URINE UROBILINOGEN NEGATIVE mg/dL (0.2-1.0)
[2018-10-13] MEDS: diphenhydrAMINE HCL 25 MG CAPSULE (FP) PO PRN (23:05)
[2018-10-14 00:27] VITALS: TEMP 98.4
[2018-10-14] MEDS: IBUPROFEN 600 MG TABLET (FP) PO PRN ×2 (04:25→12:52)
[2018-10-14 06:34] LABS: BASO % 1.4 % (0-2.0); EOS % 0.7 % (0-4.5); HEMATOCRIT 32.9 % (35.4-49); LYMPH % 26.5 % (8-40); MCH 20.8 pg (25.7-33.7); MCHC 33.5 g/dl (32.0-35.9); MEAN CELL VOLUME 62.2 fl (80-96); MEAN PLT VOLUME 9.3 fl (7.5-11.1); MONO % 10.2 % (3.8-10.2); NEUT % 61.2 % (42.8-82.8); PLATELET COUNT 245 K/MM3 (134-434); RBC 5.29 M/mm3 (4.00-5.60); RDW 20.1 % (11.9-15.9); WHITE BLOOD COUNT 6.2 K/mm3 (4.0-10.0)
[2018-10-14 07:39] LABS: ALBUMIN 3.1 g/dl (3.4-5.0); ALK PHOS 57 U/L (45-117); ANION GAP 6 MMOL/L (8-16); BILIRUBIN,TOTAL 0.6 mg/dL (0.2-1); BLOOD UREA NITROGEN 15 mg/dL (7-18); CALCIUM 7.9 mg/dL (8.5-10.1); CHLORIDE 105 mmol/L (98-107); CO2 25 mmol/L (21-32); CREATININE 0.8 mg/dL (0.55-1.3); GLUCOSE,RANDOM 78 mg/dL (74-106); MAGNESIUM 2.3 mg/dL (1.8-2.4); POTASSIUM 3.7 mmol/L (3.5-5.1); SGOT/AST 24 U/L (15-37); SGPT/ALT 59 U/L (13-61); SODIUM 135 mmol/L (136-145); TOT PROT 6.2 g/dl (6.4-8.2)
--- NOTE | 2018-10-14 10:51 | PN ---
Physical Exam: SUBJECTIVE: Patient seen and examined OBJECTIVE: clincally improving, mild intermittent headaches he attributes to insomnia in no acute distress, lungs clear generalized rash improving Vital Signs Period Temp Pulse Resp BP Sys/Laguerre Pulse Ox Last 24 Hr 98.1 F-98.5 F 74-93 18-20 114-143/62-76 97 GENERAL: The patient is awake, alert, and fully oriented, in no acute distress. HEAD: Normal with no signs of trauma. EYES: PERRL, extraocular movements intact, sclera anicteric, conjunctiva clear. No ptosis. ENT: Ears normal, nares patent, oropharynx clear without exudates, moist mucous membranes. NECK: Trachea midline, full range of motion, supple. LUNGS: Breath sounds equal, clear to auscultation bilaterally, no wheezes HEART: Regular rate and rhythm ABDOMEN: Soft, nontender, nondistended, normoactive bowel sounds, no guarding, no rebound, no hepatosplenomegaly, no masses. SKIN: raised diffused pink rash on bilateral legs, arms (mild), abdomen and back Laboratory Results - last 24 hr 10/09/18 10/11/18 10/11/18 15:15 13:45 17:15 WBC RBC Hgb Hct MCV MCH MCHC RDW Plt Count MPV Absolute Neuts (auto) Neutrophils % Lymphocytes % Monocytes % Eosinophils % Basophils % Nucleated RBC % Sodium Potassium Chloride Carbon Dioxide Anion Gap BUN Creatinine Creat Clearance w eGFR Random Glucose Calcium Magnesium Total Bilirubin AST ALT Alkaline Phosphatase Total Protein Albumin Urine Color Urine Appearance Urine pH Ur Specific [place] Urine Protein Urine Glucose (UA) Urine Ketones Urine Blood Urine Nitrite Urine Bilirubin Urine Urobilinogen Ur Leukocyte Esterase AGUSTIN Screen Positive H AGUSTIN Homogeneous Pattern 1:80 AGUSTIN Nucleolar Pattern TNP AGUSTIN Spindle Josie Pattern TNP AGUSTIN Midbody Pattern TNP AGUSTIN Centriole Pattern TNP AGUSTIN Nuclear Dot Pattern TNP AGUSTIN PCNA Pattern TNP AGUSTIN Nuclear Membr Pat TNP AGUSTIN Speckled Pattern TNP AGUSTIN Centromere Pattern TNP A.phagocytophil DNA PCR E.chaffeensis DNA (PCR) Parvovirus B19 IgG Ab 6.7 H Parvovirus B19 IgM Ab 0.2 Rickettsia IgG Ab Negative 10/12/18 10/13/18 10/14/18 06:00 19:00 05:30 WBC 6.2 RBC 5.29 Hgb 11.0 L Hct 32.9 L MCV 62.2 L MCH 20.8 L MCHC 33.5 RDW 20.1 H Plt Count 245 D MPV 9.3 Absolute Neuts (auto) 3.8 Neutrophils % 61.2 Lymphocytes % 26.5 Monocytes % 10.2 Eosinophils % 0.7 D Basophils % 1.4 Nucleated RBC % 0 Sodium Potassium Chloride Carbon Dioxide Anion Gap BUN Creatinine Creat Clearance w eGFR Random Glucose Calcium Magnesium Total Bilirubin AST ALT Alkaline Phosphatase Total Protein Albumin Urine Color Ltyellow Urine Appearance Clear Urine pH 5.0 Ur Specific [place] 1.016 Urine Protein Negative Urine Glucose (UA) 2+ H Urine Ketones Negative Urine Blood Negative Urine Nitrite Negative Urine Bilirubin Negative Urine Urobilinogen Negative Ur Leukocyte Esterase Negative AGUSTIN Screen AGUSTIN Homogeneous Pattern AGUSTIN Nucleolar Pattern AGUSTIN Spindle Josie Pattern AGUSTIN Midbody Pattern AGUSTIN Centriole Pattern AGUSTIN Nuclear Dot Pattern AGUSTIN PCNA Pattern AGUSTIN Nuclear Membr Pat AGUSTIN Speckled Pattern AGUSTIN Centromere Pattern A.phagocytophil DNA PCR Cancelled E.chaffeensis DNA (PCR) Cancelled Parvovirus B19 IgG Ab Parvovirus B19 IgM Ab Rickettsia IgG Ab 10/14/18 05:30 WBC RBC Hgb Hct MCV MCH MCHC RDW Plt Count MPV Absolute Neuts (auto) Neutrophils % Lymphocytes % Monocytes % Eosinophils % Basophils % Nucleated RBC % Sodium 135 L Potassium 3.7 Chloride 105 Carbon Dioxide 25 Anion Gap 6 L BUN 15 Creatinine 0.8 Creat Clearance w eGFR 100.36 Random Glucose 78 Calcium 7.9 L Magnesium 2.3 Total Bilirubin 0.6 AST 24 ALT 59 Alkaline Phosphatase 57 Total Protein 6.2 L Albumin 3.1 L Urine Color Urine Appearance Urine pH Ur Specific [place] Urine Protein Urine Glucose (UA) Urine Ketones Urine Blood Urine Nitrite Urine Bilirubin Urine Urobilinogen Ur Leukocyte Esterase AGUSTIN Screen AGUSTIN Homogeneous Pattern AGUSTIN Nucleolar Pattern AGUSTIN Spindle Josie Pattern AGUSTIN Midbody Pattern AGUSTIN Centriole Pattern AGUSTIN Nuclear Dot Pattern AGUSTIN PCNA Pattern AGUSTIN Nuclear Membr Pat AGUSTIN Speckled Pattern AGUSTIN Centromere Pattern A.phagocytophil DNA PCR E.chaffeensis DNA (PCR) Parvovirus B19 IgG Ab Parvovirus B19 IgM Ab Rickettsia IgG Ab Active Medications Generic Name Dose Route Start Last Admin Trade Name Freq PRN Reason Stop Dose Admin Acetaminophen 650 mg 10/09/18 13:22 10/10/18 17:34 Tylenol - PO 650 mg Q6H PRN Administration HEADACHE Diphenhydramine HCl 25 mg 10/12/18 10:55 10/13/18 23:05 Benadryl - PO 25 mg Q8H PRN Administration FOR ITCHING Doxycycline Hyclate 100 mg/ 100 mls @ 100 mls/hr 10/11/18 12:45 10/13/18 21: 26 Dextrose IVPB 100 mls/hr BID ELY Administration Ibuprofen 400 mg 10/11/18 08:42 10/13/18 04:41 Motrin - PO 400 mg Q6H PRN Administration PAIN LEVEL 1-5 Ibuprofen 600 mg 10/11/18 08:44 10/14/18 04:25 Motrin - PO 600 mg Q6H PRN Administration PAIN LEVEL 6-10 Prednisone 40 mg 10/14/18 12:30 Deltasone - PO DAILY ELY Ranitidine HCl 150 mg 10/12/18 11:00 10/13/18 21:27 Zantac - PO 150 mg BID ELY Administration Triamcinolone Acetonide 1 applic 10/11/18 22:00 10/13/18 21:27 Aristocort 0.1% Cream - TP 1 applic BID ELY Administration ASSESSMENT/PLAN: Patient is a 53 year old male with no significant past medical history, presents to the ED on 10/12/18 with high fevers of 103F, chills, generalized raised red rash to chest, trunk and arms accompanied with headaches that has been going on for approximately 2 days prior to admission. Patient denied chest pain, shortness of breath, dizziness, palpitations ,neck pain, abdominal pain, nausea or vomiting. He is being worked up for infectious workup and is being evaluated by dermatology and rheumotology. He reports feeling better today, mild headaches, but improved since starting prednisone daily. His right knee is still swollen. His was treated for the flu with tamiflu but he was not treated prophylactic with tamiflu. labs: agustin screen: positive rpr titer: negative Imaging MRI brain 10/12/18: MRI brain with no acute pathology knee ray: no fracture, suprapatellar joint effusion chest xray: negative ID: Fever of unknown origin concurrently with a diffused raised rash and headaches fevers, resolved diffused rash, improving headaches, reported as mild,relived with motrin WBC within normal limits, no tachycardia or signs of sepsis Influenza negative MRI of brain negative for acute findings Rubeola IgG positive, IgM pending workup of influenza negative blood and urine cultures remains negative blood parasite smear with no parasites found on doxycline 100mg bid Predinisone 60mg daily. taper? Awaiting dermatology recommendations Seen by rheumatology, notes reviewed Remains on isolation precautions fen stop ivf, encourage po hydration monitor labs daily low salt diet prophy ambulation SCDs full code Visit type - Emergency Visit Emergency Visit: Yes ED Registration Date: 10/12/18 Care time: The patient presented to the Emergency Department on the above date and was hospitalized for further evaluation of their emergent condition. - New Patient This patient is new to me today: No - Critical Care Critical Care patient: No - Discharge Referral Referred to [facility] No
[2018-10-14] MEDS: TRIAMCINOLONE ACET 0.1% CREAM 15 GM TUBE TP SCH (11:45)
[2018-10-14] MEDS: DOXYCYCLINE INJECTION 100 MG in DEXTROSE 5%-WATER - 100 ML IVPB SCH (11:49)
[2018-10-14] MEDS: RANITIDINE HCL 150 MG TABLET (FP) PO SCH (11:49)
[2018-10-14] MEDS ORDERED: predniSONE 20 MG TABLET (UD) PO SCH (12:30)
--- NOTE | 2018-10-14 12:31 | PN ---
Progress Note (short form) - Note Progress Note: feels well minimal headache no fevers Vital Signs Period Temp Pulse Resp BP Sys/Laguerre Pulse Ox Last 24 Hr 98.1 F-98.5 F 74-93 18-20 114-143/62-76 97 cor-rrr lungs clear abd soft,nt ext no edema skin lesions unchanged, darkened- no new lesions CBC, BMP 10/14/18 05:30 10/14/18 05:30 rubella IGG positive, IGM negative (verbal from [facility]) cxray normal Microbiology 10/08/18 20:25 Blood - Peripheral Venous Blood Culture - Final NO GROWTH AFTER 5 DAYS INCUBATION 10/08/18 20:25 Blood - Peripheral Venous Blood Culture - Final NO GROWTH AFTER 5 DAYS INCUBATION 10/11/18 13:45 Blood - Peripheral Venous Blood Culture - Preliminary NO GROWTH OBTAINED AFTER 48 HOURS, INCUBATION TO CONTINUE FOR 3 DAYS. 10/11/18 13:30 Blood - Peripheral Venous Blood Culture - Preliminary NO GROWTH OBTAINED AFTER 48 HOURS, INCUBATION TO CONTINUE FOR 3 DAYS. 10/11/18 13:45 Blood - Peripheral Venous Blood Parasites Smear - Final 10/09/18 19:58 Throat Throat Culture - Final NO BETA HEMOLYTIC STREPTOCOCCI ISOLATED Active Medications Acetaminophen (Tylenol -) 650 mg PO Q6H PRN PRN Reason: HEADACHE Last Admin: 10/10/18 17:34 Dose: 650 mg Diphenhydramine HCl (Benadryl -) 25 mg PO Q8H PRN PRN Reason: FOR ITCHING Last Admin: 10/13/18 23:05 Dose: 25 mg Doxycycline Hyclate 100 mg/ (Dextrose) 100 mls @ 100 mls/hr IVPB BID [facility] Last Admin: 10/14/18 11:49 Dose: 100 mls/hr Ibuprofen (Motrin -) 400 mg PO Q6H PRN PRN Reason: PAIN LEVEL 1-5 Last Admin: 10/13/18 04:41 Dose: 400 mg Ibuprofen (Motrin -) 600 mg PO Q6H PRN PRN Reason: PAIN LEVEL 6-10 Last Admin: 10/14/18 04:25 Dose: 600 mg Prednisone (Deltasone -) 40 mg PO DAILY [facility] Last Admin: 10/14/18 11:49 Dose: 40 mg Ranitidine HCl (Zantac -) 150 mg PO BID [facility] Last Admin: 10/14/18 11:49 Dose: 150 mg Triamcinolone Acetonide (Aristocort 0.1% Cream -) 1 applic TP BID ELY Last Admin: 10/14/18 11:45 Dose: 1 applic d/w dermatology- prelim skin biopsy with interface dermatitis- ?connective tissue, ?viral, not sweet's syndromr d/w QIANA- measles pcr negative a/p fever/rash d/c isolation can send home on po prednisone 40 mg taper by 10 mg every 3 days switch to po doxycycline 100 mg po bid for another 10 days should stay out of the sun while on doxycycline f/u next week with Dr Swartz and Dr Kiser patient to call for appt d/w Dr Jiang d/w Dr Kiser d/w Dr Swartz d/w hospitalist
[2018-10-14 14:04] VITALS: BP 114/77; PULSE 80
--- NOTE | 2018-10-14 14:24 | DS ---
Physical Exam: SUBJECTIVE: Patient seen and examined OBJECTIVE: Vital Signs Period Temp Pulse Resp BP Sys/Laguerre Pulse Ox Last 24 Hr 98.1 F-98.4 F 74-88 18-20 114-132/62-77 97 PHYSICAL EXAM GENERAL: The patient is awake, alert, and fully oriented, in no acute distress. HEAD: Normal with no signs of trauma. EYES: PERRL, extraocular movements intact, sclera anicteric, conjunctiva clear. ENT: Ears normal, nares patent, oropharynx clear without exudates, moist mucous membranes. NECK: Trachea midline, full range of motion, supple. LUNGS: Breath sounds equal, clear to auscultation bilaterally, no wheezes, no crackles, no accessory muscle use. HEART: Regular rate and rhythm, S1, S2 without murmur, rub or gallop. ABDOMEN: Soft, nontender, nondistended, normoactive bowel sounds, no guarding, no rebound, no hepatosplenomegaly, no masses. EXTREMITIES: 2+ pulses, warm, well-perfused, no edema. NEUROLOGICAL: Cranial nerves II through XII grossly intact. Normal speech, gait not observed. PSYCH: Normal mood, normal affect. SKIN: Warm, dry, normal turgor, no rashes or lesions noted. LABS Laboratory Results - last 24 hr 10/09/18 10/11/18 10/11/18 15:15 13:45 17:15 WBC RBC Hgb Hct MCV MCH MCHC RDW Plt Count MPV Absolute Neuts (auto) Neutrophils % Lymphocytes % Monocytes % Eosinophils % Basophils % Nucleated RBC % Sodium Potassium Chloride Carbon Dioxide Anion Gap BUN Creatinine Creat Clearance w eGFR Random Glucose Calcium Magnesium Total Bilirubin AST ALT Alkaline Phosphatase Total Protein Albumin Urine Color Urine Appearance Urine pH Ur Specific [place] Urine Protein Urine Glucose (UA) Urine Ketones Urine Blood Urine Nitrite Urine Bilirubin Urine Urobilinogen Ur Leukocyte Esterase LOLA Screen Positive H LOLA Homogeneous Pattern 1:80 LOLA Nucleolar Pattern TNP LOLA Spindle Josie Pattern TNP LOLA Midbody Pattern TNP LOLA Centriole Pattern TNP LOLA Nuclear Dot Pattern TNP LOLA PCNA Pattern TNP LOLA Nuclear Membr Pat TNP LOLA Speckled Pattern TNP LOLA Centromere Pattern TNP A.phagocytophil DNA PCR E.chaffeensis DNA (PCR) Parvovirus B19 IgG Ab 6.7 H Parvovirus B19 IgM Ab 0.2 Rickettsia IgG Ab Negative 03/10/13/18 10/14/18 06:00 19:00 05:30 WBC 6.2 RBC 5.29 Hgb 11.0 L Hct 32.9 L MCV 62.2 L MCH 20.8 L MCHC 33.5 RDW 20.1 H Plt Count 245 D MPV 9.3 Absolute Neuts (auto) 3.8 Neutrophils % 61.2 Lymphocytes % 26.5 Monocytes % 10.2 Eosinophils % 0.7 D Basophils % 1.4 Nucleated RBC % 0 Sodium Potassium Chloride Carbon Dioxide Anion Gap BUN Creatinine Creat Clearance w eGFR Random Glucose Calcium Magnesium Total Bilirubin AST ALT Alkaline Phosphatase Total Protein Albumin Urine Color Ltyellow Urine Appearance Clear Urine pH 5.0 Ur Specific [place] 1.016 Urine Protein Negative Urine Glucose (UA) 2+ H Urine Ketones Negative Urine Blood Negative Urine Nitrite Negative Urine Bilirubin Negative Urine Urobilinogen Negative Ur Leukocyte Esterase Negative LOLA Screen LOLA Homogeneous Pattern LOLA Nucleolar Pattern LOLA Spindle Josie Pattern LOLA Midbody Pattern LOLA Centriole Pattern LOLA Nuclear Dot Pattern LOLA PCNA Pattern LOLA Nuclear Membr Pat LOLA Speckled Pattern LOLA Centromere Pattern A.phagocytophil DNA PCR Cancelled E.chaffeensis DNA (PCR) Cancelled Parvovirus B19 IgG Ab Parvovirus B19 IgM Ab Rickettsia IgG Ab 10/14/18 05:30 WBC RBC Hgb Hct MCV MCH MCHC RDW Plt Count MPV Absolute Neuts (auto) Neutrophils % Lymphocytes % Monocytes % Eosinophils % Basophils % Nucleated RBC % Sodium 135 L Potassium 3.7 Chloride 105 Carbon Dioxide 25 Anion Gap 6 L BUN 15 Creatinine 0.8 Creat Clearance w eGFR 100.36 Random Glucose 78 Calcium 7.9 L Magnesium 2.3 Total Bilirubin 0.6 AST 24 ALT 59 Alkaline Phosphatase 57 Total Protein 6.2 L Albumin 3.1 L Urine Color Urine Appearance Urine pH Ur Specific [place] Urine Protein Urine Glucose (UA) Urine Ketones Urine Blood Urine Nitrite Urine Bilirubin Urine Urobilinogen Ur Leukocyte Esterase LOLA Screen LOLA Homogeneous Pattern LOLA Nucleolar Pattern LOLA Spindle Joise Pattern LOLA Midbody Pattern LOLA Centriole Pattern LOLA Nuclear Dot Pattern LOLA PCNA Pattern LOLA Nuclear Membr Pat LOLA Speckled Pattern LOLA Centromere Pattern A.phagocytophil DNA PCR E.chaffeensis DNA (PCR) Parvovirus B19 IgG Ab Parvovirus B19 IgM Ab Rickettsia IgG Ab HOSPITAL COURSE: Date of Admission:10/12/18 Date of Discharge: 10/14/18 Discharge Summary Reason For Visit: MEASLES, FEVER, RASH Current Active Problems Fever (Acute) Knee swelling (Acute) Measles (Acute) Rash (Acute) Viral syndrome (Acute) Condition: Improved - Instructions Diet, Activity, Other Instructions: Mr. Gabriel: You were admitted on 10/12/2018 for generalized rash, fevers and headaches. We have ruled out for measles. We will be discharging you home today with the following recommendations: Generalized rash Your rash is improving overall, continue the trimacinolone cream twice per day. You will be sent home on Prednisone taper. Please take as follows: Prednisone 40mg once per day - this dose was given to you on 10/14/18 during your hospital stay Prednisone 40mg once per day - take on 10/15/2018 at 8am. Prednisone 40mg once per day - take on 10/16/2018 at 8am. Prednisone 30mg once per day - take on 10/17/2018 at 8am. Prednisone 30mg once per day - take on 10/18/2018 at 8am. Prednisone 30mg once per day - take on 10/19/2018 at 8am. Prednisone 20mg once per day - take on 10/20/2018 at 8am. Prednisone 20mg once per day - take on 10/21/2018 at 8am. Prednisone 10mg once per day - take on 10/22/2018 at 8am. Prednisone 10mg once per day - take on 10/23/2018 at 8am. Prednisone 10mg once per day - take on 10/24/2018 at 8am. - THIS IS YOUR LAST DOSE Continue the Doxycycline 100mg twice per day for another 10 days (from 2018 until 10/24/2018). Please avoid the sun while on the doxycline. If in the sun, please use a sun protectant with high SPF. Headaches: Take either Motrin or Tylenol for headaches. Please make a follow up appointment with both Dr. Swartz (infectious disease) and Dr. Gloria (rheumatology) within 1 week after discharge. I am available for questions. Please call me if you have any concerns. Thank you for allowing us to care for you. [facility] [phone] Referrals: Kalen Kiser MD [Staff Physician] - 1 Week Akin wSartz MD [Staff Physician] - 1 Week Disposition: HOME - Home Medications Comprehensive Discharge Medication List: Ambulatory Orders Doxycycline Hyclate 100 mg PO BID #20 tablet 10/14/18 Prednisone 10 mg PO DAILY #40 tablet 10/14/18 Ranitidine [Zantac -] 150 mg PO BID #60 tablet 10/14/18 Triamcinolone 0.1% Cream [Aristocort 0.1% Cream -] 1 applic TP BID #10 applic - Discharge Referral Referred to [facility] No
[2018-10-14] MEDS ORDERED: SUMAtriptan SUCCINATE 50 MG TABLET PO STA (14:36)
[2018-10-14 15:24] LABS: E.chaff HME IgG Negative (Neg:<1:64)
[2018-10-14 15:24] LABS: MYCOPLASMA PNEUMONIAE,IG G AB 166 U/mL (0-99); MYCOPLASMA PNEUMONIAE,IGM AB <770 U/mL (0-769)
--- NOTE | 2018-10-14 16:48 | PN ---
Progress Note (short form) - Note Progress Note: NEUROLOGY PROGRESS: Events reviewed and discussed with staff. Consults read and appreciated. Inessa at bedside. Empirically treated with doxycycline for possible tick-borne illness and prednisone for rash. LOLA positive, with further immunologic and rheumatologic workup pending. Found neg for measles. Reports fever broke 2 days ago, and reports did not have a headache last night, however reports dull frontal headache today- attributed to poor sleep. Given trial of sumatriptan 100 mg po x 1, and noted "dulling" of headache within 20 minutes and well tolerated. 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 MRI of brain C+/C- (reviewed): essentially normal study, no evidence of vasculitis AGATHA: Cor reg. Neck supple. Wide-spread maculopapules noted up both legs, now crusting over. NEURO Awake, alert, well-oriented. EOM intact and full ellison appreciated. No drift. Strength normal. Reflexes normal. No FTN dystaxia Nl vibration Nl stride. Impression: 1. Essentially normal neurological exam 2. Migraine headache exacerbated by viral syndrome Suggest: Abortive migraine treatment with triptan appears effective and suggestive of underlying migraine Discussed with patient usefulness of LP, however patient declines at this time Start a headache calendar and follow up as out-patient for rx for migraines Thank you very much, See Nazario MD
[2018-10-15 23:10] LABS: COMPLEMENT TOTAL(CH50) > 60 U/mL (>41)
[2018-10-19 16:16] LABS: ATYPICAL pANCA <1:20 titer (Neg:<1:20); C-ANCA <1:20 titer (Neg:<1:20); P-ANCA <1:20 titer (Neg:<1:20)
== END 2018-10-14 15:26 | disposition home or self-care (01) | DRG 866 ==
LOC: FER 19:26 → FM/S 10-09 00:09 → J4W 10-09 12:55 → OBSVTOIN 10-12 09:44
PROVIDERS: ADMIT Internal Medicine; ATTEND Nurse Practitioner Family
DX: B34.9 Viral infection, unspecified (principal); E87.1 Hypo-osmolality and hyponatremia; R00.0 Tachycardia, unspecified; R50.9 Fever, unspecified; R21 Rash and other nonspecific skin eruption; M25.469 Effusion, unspecified knee; G43.909 Migraine, unspecified, not intractable, without status migrainosus; G47.00 Insomnia, unspecified
CPT/HCPCS: 36415; 70553-TC; 71045-TC-FY; 73562-TC-RT-FY; 80048; 80053; 80076; 81003; 82595; 83520; 83615; 83735; 84550; 85025; 85651; 86038; 86060; 86140; 86162; 86225; 86256; 86308; 86431; 86593; 86618; 86664; 86665; 86666; 86738; 86747; 86757; 86765; 87040; 87070; 87207; 87389; 87799; 87804; 87880; 99283-25; A9579; G0378; J7030